=== PATIENT | male | born 1980 | race Caucasian/White ===

== ENCOUNTER 2020-10-04 15:11 | Outpatient (CLI) | payer BC ==
[2020-10-04 15:53] VITALS: BP 138/88
--- NOTE | 2020-10-04 15:53 | SLEEP CARE CONSULTATION ---
Information from patient questionnaire entered by Jj Lowe. I have reviewed and concur with the information entered by Jj Lowe. This document represents the service I personally performed and the decisions made by me, Nidia Hein ARNP. History of Present Illness Service Date and Time: 10/04/2020 1511 Reason for Visit: New patient Chief Complaint: reports: Unrefreshed sleep, Snoring, Excessive daytime sleepiness, Observed pauses in breathing, Frequent awakenings at night. denies: Insomnia, Fatigue Date of Onset: 8 years Usual bedtime: 11:30 PM Time it takes to fall asleep: 2 min Snores at night: Yes Observed to quit breathing while asleep: Yes Sleeps alone due to snoring: Yes Number of times waking at night: 3 Reasons for waking at night: reports: Snoring, Pain (in back). denies: Choking, Gasping for air Toss, Turn, or Twitch while sleeping: Yes Recalls having dreams: No Usually gets out of bed at: between 6 AM and 7 AM Feels refreshed in the morning: No Morning headache: No (none since getting mouth guard from dentist, possible bruxism) Sleepy or fatigued during the day: Yes Ever fallen asleep while driving: No Takes day naps: Yes (3 x a week for about 10 minutes to 30 minutes) Dreams during day naps: No Prior sleep studies: No Additional HPI information: I had the pleasure of seeing CEE CARRASCO today regarding the possibility of him having a sleep disorder. His current complaints are snoring, observed pauses in breathing and waking up at night. His states he snores and times when he has "held his breath" while sleeping. His snoring is so bad that his and he cannot sleep in same bed. His mother snores but has never been evaluated for sleep apnea. - Parasomnia Symptoms Ever been unable to move upon waking from sleep: No Walks in sleep: No Talks in sleep: No Ever acted out dreams in sleep: No Ever felt weak in the knees when startled or emotional: No Bothered by creepy, crawly, restless sensations in legs: No Problems with memory or concentration: Yes (more short term memory) Subjective Initial [place] Sleepiness Scale score: 11 (in 2019) Past Medical History Past Medical History: denies: Hypertension, Insulin resistance, Arrythmia, Anxiety, Impotence, Depression, Mood disorder, GERD Social History The patient's occupation is a [employer]. Patient is and lives in [place]. Have you smoked in the past 12 months: No Alcohol use: Yes Alcohol amount and frequency: one glass of wine twice a month Caffeine use: Yes Caffeine amount and frequency: 2 cans a day on average Family History Family history of sleep disordered breathing: Yes (Mother) Family Hx Sleep Apnea: Mother: Snoring Allergies and Home Medications Drug allergies reviewed: Yes (NKDA) Home medication list reviewed: Yes Allergy and home medication list: Advil, prn Review of Systems Weight gain over past 5 years: 30 Weight loss over past 5 years: 50 Cardiovascular: denies: high blood pressure, irregular heart rate or pulse Gastrointestinal: denies: heartburn Urinary: denies: impotence Neurological: denies: headaches Psychiatric: denies: anxiety, depression, mood disorder, claustrophobia Ear/Nose/Throat: reports: nose bleeds (random, here and there), wisdom teeth removed (still has 3, only one taken out). denies: nasal congestion, sinus problems, dry mouth/throat, injury to nose, tonsillectomy Musculoskeletal: reports: muscle pain or cramping Immunologic: denies: allergies to food or environment Physical Exam Blood Pressure: 138/88 Cuff size: long Heart Rate: 77 O2 Saturation: 98 Height: 6 ft 1.5 in Weight: 268 lb Body Mass Index: 34.9 BMI Classification: Obese Neck circumference: 18 (inches) Nostrils: patent to airflow Turbinates: normal Septum: midline Mouth and throat: narrow oropharynx Soft palate: normal Hard palate: normal Uvula: normal Uvula visualization: 50% Mallampati Class II Tongue: normal in size Tonsils: 1+ Chin and jaw: normal size and position Neck: normal w/o lymphadenopathy or thyromegaly Heart: regular rate and rhythm Lungs: clear bilaterally Impression and Plan 1. Suspected Obstructive Sleep Apnea-Hypopnea Syndrome, as suggested by a history of loud and irregular snoring, observed cessation of breath while asleep, frequent awakening during the night, unrefreshed sleep, cognitive impairment, and excessive daytime sleepiness. Narrow oropharynx and obesity are common predisposing factors for obstructive sleep apnea-hypopnea syndrome. I recommend proceeding to polysomnography to confirm the diagnosis and to assess severity. If the patient has significant sleep disordered breathing, a manual CPAP titration study will also be performed to find the optimal treatment pressure. I informed the patient of what the sleep studies involve and after some discussion, obtained agreement to proceed. The pathophysiology of obstructive sleep apnea-hypopnea syndrome was discussed with the patient and health risks of cardiovascular and cerebrovascular disease if not treated. [facility] brochure for obstructive sleep apnea-hypopnea syndrome given and reviewed. Risks of drowsy driving discussed in detail and patient advised to avoid long distance driving and to head well puller at the first sign of drowsiness. Patient agreed to plan. * Schedule polysomnography +- manual CPAP titration study. * Avoid long distance driving or driving when feeling sleepy. * Avoid alcohol, sedative and muscle relaxant around bedtime. * Attempt to lose weight. * Review instructions provided by trained office staff on how to prepare for the sleep study. * Return for follow-up after sleep study completed. Counseling Topics: Weight loss health impact Visit Type: In Office Time Spent with Patient (minutes): 30 Provider Statement: I spent 100% of the Face to Face Visit with the patient with greater than 50% spent counseling the patient and coordination of care.
== END 2020-10-04 15:12 | disposition home or self-care (01) ==
LOC: SC 15:11
PROVIDERS: ATTEND Nurse Practitioner Family
DX: G47.10 Hypersomnia, unspecified (principal); R41.89 Other symptoms and signs involving cognitive functions and awareness; G47.8 Other sleep disorders; R06.81 Apnea, not elsewhere classified; R06.83 Snoring; E66.9 Obesity, unspecified; Z68.34 Body mass index [BMI] 34.0-34.9, adult
CPT/HCPCS: 99212; 99213

== ENCOUNTER 2020-10-31 14:03 | Outpatient (CLI) | payer BC | END 2020-10-31 14:04 | disposition home or self-care (01) | LOC: SC 14:03 | PROVIDERS: ATTEND Nurse Practitioner Family | DX: G47.33 Obstructive sleep apnea (adult) (pediatric) (principal); R09.02 Hypoxemia; E66.3 Overweight; Z68.35 Body mass index [BMI] 35.0-35.9, adult | CPT/HCPCS: 95806 ==

== ENCOUNTER 2020-11-08 15:42 | Outpatient (CLI) | payer BC ==
--- NOTE | 2020-11-08 15:58 | SLEEP CARE CONSULTATION ---
Information from patient questionnaire entered by Jj Lowe. I have reviewed and concur with the information entered by Jj Lowe. This document represents the service I personally performed and the decisions made by , Nidia Hein ARNP. History of Present Illness Service Date and Time: 11/08/2020 1540 Accompanied by: Spouse Initial [place] Sleepiness Scale score: 11 (in 2020) Current [place] Sleepiness Scale score: 16 Additional HPI information: CEE CARRASCO returns via Telehealth visit with spouse for follow up and results of the recently performed home sleep study. I explained the pathophysiology behind obstructive sleep apnea. We then spent quite a bit of time discussing different treatment options. For mild obstructive sleep apnea, surgery and oral appliance are alternatives to nasal CPAP therapy but in moderate or severe cases, nasal CPAP is the most effective and reliable treatment. Because apnea is primarily in supine position, then positional management therapy could be effective. Methods discussed such as positioning with pillows, using a T-shirt with tennis balls in the back, and shown commercial products that have a pillow format on back to prevent supine sleep. I reviewed the impact of weight changes on sleep apnea and strongly recommended losing weight. After some discussion, the patient opted to go with the nasal CPAP therapy. Nasal autoCPAP set at 4-15 cmH20 will be ordered with rationale explained. A manual titration study will be ordered if unable to find optimal pressure with office adjustments. I explained how CPAP machine works and what to expect when using the machine. Using CPAP every night in order to get used to it was emphasized. Patient advised to put CPAP mask on before getting into bed so as not to fall asleep without CPAP. To assist acclimation to CPAP use, it could also be used for a short time during day while reading or watching TV. The patient was instructed to call the CPAP supplier to discuss any mechanical problem that may occur. If the mask given is uncomfortable or is difficult to keep on through the night even with adjustment, contact the CPAP supplier as many will replace with another mask style if notified before 30 days. If snoring or perceives is not getting enough air or too much air from the machine, notify this office. Patient was cautioned about risks of drowsy driving until sleepiness symptoms resolve. Sleep Study - Results Type of Sleep Study: Home sleep study Prior sleep studies: No Polysomnography/Home Sleep Study results: Physician Impression: The quality of the study is good. The length of the study is adequate (> 240 minutes). Please also see the tabulated and graphic data. 1. Obstructive Sleep Apnea-Hypopnea (ICD-10 G47.33), mild, with an AHI of 6.3/hr and davon SaO2 of 88%. During the study, the patient had 11 apneas (11 obstructive, 0 central, 0 mixed) and 26 hypopneas. The longest episode lasted 52.0 seconds. The respiratory events occurred almost exclusively during supine sleep (supine AHI was 47.9 and non-supine, 0.77). 2. Hypoxemia (ICD-10 R09.02), minimal, with the lowest oxygen saturation of 88 % and 0.2 minutes with SaO2 under 90%. Baseline oxygen saturation was normal (Average oxygen saturation was 95%). Allergies and Home Medications Home medication list reviewed: Yes (no changes) Review of Systems Review of systems same as previous: Yes (no changes) Physical Exam Vital signs obtained and entered by: Telehealth visit to reduce exposure during covid pandemic Height: 6 ft 1.5 in Impression and Plan 1. Obstructive Sleep Apnea-Hypopnea Syndrome, mild, with lowest oxygen saturation of 88%. Patient has severe SANCHO in the supine position. Obviously this is the cause of the patients symptoms of unrefreshed sleep, and excessive daytime sleepiness. Positive pressure therapy could benefit his overall health and reduce risks of cerebrovascular or cardiovascular adverse events. As mentioned above, the patient will be started on nasal autoCPAP therapy with pressure set at 4-15 cmH2O. A manual titration study will be completed if unable to find optimal treatment pressure with office adjustments. Compliance guidelines also reviewed. A copy of compliance guidelines will be given for reference at check out. Because the apnea is more severe supine, I instructed to avoid sleeping supine using pillow positioning until able to start CPAP use. * Nasal auto CPAP therapy, pressure at 4-15 cm H2O. * Attempt to lose weight. * Avoid alcohol consumption near bedtime. * Avoid supine sleep until using CPAP. * The patient is again cautioned about driving until sleepiness completely resolves. * Return one month after CPAP obtained. I will assess response to therapy and compliance at that time. Counseling Topics: Weight loss health impact Visit Type: Telehealth Video Video Type: VSee Patient Location: Home Location of Provider: Office Patient agrees and consents to this telehealth visit type: Yes Patient agrees to have their insurance billed: Yes Time Spent with Patient (minutes): 21 Provider Statement: I spent 100% of the Telehealth Video Call with the patient with greater than 50% spent counseling the patient and coordination of care.
== END 2020-11-08 15:43 | disposition home or self-care (01) ==
LOC: SC 15:42
PROVIDERS: ATTEND Nurse Practitioner Family
DX: G47.33 Obstructive sleep apnea (adult) (pediatric) (principal)

== ENCOUNTER 2021-01-10 15:12 | Outpatient (CLI) | payer BC ==
--- NOTE | 2021-01-10 15:44 | SLEEP CARE CONSULTATION ---
Information from patient questionnaire entered by Jj Lowe. I have reviewed and concur with the information entered by Jj Lowe. This document represents the service I personally performed and the decisions made by , Nidia Hein ARNP. History of Present Illness Service Date and Time: 01/10/2021 1512 Previous diagnosis: Mild, Obstructive Sleep Apnea-Hypopnea Syndrome AHI: 6.3 Reason for follow up: first compliance (11/30/20) Equipment type: CPAP Equipment obtained from: Other ([facility]; got initial supplies) Mask style: Nasal (under the nose) Backup mask available: No (will keep mask when replaced) Last cushion change: 1 month Prior sleep studies: No Year and Where: 2020 [facility] [place] Type of Sleep Study: Home sleep study HPI additional information: CEE CARRASCO was diagnosed to have mild, AHI 6.3, obstructive sleep apnea- hypopnea syndrome and returned today for CPAP therapy first compliance follow- up. CPAP Compliance Data - Data Reviewed with Patient Average duration of nightly device use: 6 h 14 min Compliance rate %: 100 Current pressure setting (cmH2O): 4-15 (median 7.3, avg 9.8, max 11.1) Average residual AHI: 0.8 Subjective Patient concerns: reports: dry mouth, nose, throat (dry mouth intermittently, 3 of 7 days). denies: aerophagia, mask discomfort, air blowing in eyes, mask leak noise, condensation in mask/hose, nasal congestion, epistaxis, other Observed to snore while using device: No Current pressure setting perceived as: comfortable On therapy, patient: reports: sleeping better, awakening more refreshed, being more awake and alert during the day, more rested overall. denies: drowsiness while driving Initial [place] Sleepiness Scale score: 11 (in 2020) Current [place] Sleepiness Scale score: 13 Allergies and Home Medications Home medication list reviewed: Yes (no changes) Review of Systems Review of systems same as previous: Yes (no changes) Physical Exam Heart Rate: 84 O2 Saturation: 98 Height: 6 ft 1.5 in Weight: 280 lb Body Mass Index: 36.4 BMI Classification: Obese Impression and Plan 1. Obstructive Sleep Apnea-Hypopnea Syndrome, mild, with excellent treatment compliance and excellent apnea control. On CPAP therapy, the patient has better sleep quality and is more rested overall. I will adjust pressure to reflect the pressure being used to 7-11 cmH2O. He has had some mouth dryness about 3 out of 7 days on average. He did increase his humidity but has noted a little bit of condensation in the tubing. Oral dryness can be reduced by adjusting humidity setting higher or heated hose lower or by adjusting both settings. He can incre ase the heated hose setting to reduce condensation. He voiced understanding. Patient's apnea severity and rationale for treatment to reduce apnea, improve sleep quality and reduce cardiovascular and cerebrovascular events was reviewed. * Change auto CPAP pressure to 7-11 cmH2O * Notify me if snoring with mask or feeling that the pressure is too much or too little * Attempt to lose weight * Call this office if any problems using CPAP * Return for follow up in 1-2 months, or sooner if concerns arise Counseling Topics: Weight loss health impact Visit Type: In Office Time Spent with Patient (minutes): 17 Provider Statement: I spent 100% of the Face to Face Visit with the patient with greater than 50% spent counseling the patient and coordination of care.
== END 2021-01-10 15:13 | disposition home or self-care (01) ==
LOC: SC 15:12
PROVIDERS: ATTEND Nurse Practitioner Family
DX: G47.33 Obstructive sleep apnea (adult) (pediatric) (principal); E66.9 Obesity, unspecified; Z68.36 Body mass index [BMI] 36.0-36.9, adult
CPT/HCPCS: 99212

== ENCOUNTER 2021-03-14 14:51 | Outpatient (CLI) | payer BC ==
--- NOTE | 2021-03-14 15:14 | SLEEP CARE CONSULTATION ---
Information from patient questionnaire entered by Radha Monet. I have reviewed and concur with the information entered by Radha Monet. This document represents the service I personally performed and the decisions made by me, Nidia Hein ARNP. History of Present Illness Service Date and Time: 03/14/2021 1451 Previous diagnosis: Mild, Obstructive Sleep Apnea-Hypopnea Syndrome AHI: 6.3 (in 2020) Reason for follow up: other (6 week with pressure change) Equipment type: CPAP Equipment obtained from: Other ([facility]; getting supplies as needed) Mask style: Nasal Backup mask available: Yes (old mask) Last cushion change: 1 week ago Prior sleep studies: Yes Year and Where: 2020 - [facility] Type of Sleep Study: Home sleep study HPI additional information: CEE CARRASCO was diagnosed to have mild, AHI 6.3, obstructive sleep apnea- hypopnea syndrome and returned today for CPAP therapy 6 week pressure change follow-up. CPAP Compliance Data - Data Reviewed with Patient Average duration of nightly device use: 6 hr 21 min Compliance rate %: 100 (42 days) Current pressure setting (cmH2O): 7-11 Humidity settin Average residual AHI: 0.7 Subjective Patient concerns: reports: dry mouth, nose, throat (dry mouth every once a while). denies: aerophagia, mask discomfort, air blowing in eyes, mask leak noise, condensation in mask/hose, nasal congestion, epistaxis Observed to snore while using device: No Current pressure setting perceived as: comfortable On therapy, patient: reports: sleeping better, awakening more refreshed, being more awake and alert during the day, more rested overall. denies: drowsiness while driving Initial [place] Sleepiness Scale score: 11 (in 2019) Current [place] Sleepiness Scale score: 7 Allergies and Home Medications Home medication list reviewed: Yes (no new meds) Review of Systems Review of systems same as previous: Yes (no changes; got Lars/Lars Covid vaccine in January) Physical Exam Heart Rate: 87 O2 Saturation: 98 Height: 6 ft 1.5 in Weight: 282 lb Body Mass Index: 36.7 BMI Classification: Obese Impression and Plan 1. Obstructive Sleep Apnea-Hypopnea Syndrome, mild, with excellent treatment compliance and excellent apnea control. On CPAP therapy, the patient has better sleep quality and is more rested overall. He states he get occasional dry mouth, he thinks this happens when his mouth comes open. I reviewed with him again about use of a chin strap if it becomes more regular or increasing his humidity setting. He voiced understanding. Patient's apnea severity and rationale for treatment to reduce apnea, improve sleep quality and reduce cardiovascular and cerebrovascular events was reviewed. * Continue auto CPAP pressure at 7-11 cmH2O * Notify me if snoring with mask or feeling that the pressure is too much or too little * Attempt to lose weight * Call this office if any problems using CPAP * Return for follow up in 3 months, or sooner if concerns arise Counseling Topics: Spare mask, Weight loss health impact Visit Type: In Office Time Spent with Patient (minutes): 15 Provider Statement: I spent 100% of the Face to Face Visit with the patient with greater than 50% spent counseling the patient and coordination of care.
== END 2021-03-14 14:52 | disposition home or self-care (01) ==
LOC: SC 14:51
PROVIDERS: ATTEND Nurse Practitioner Family
DX: G47.33 Obstructive sleep apnea (adult) (pediatric) (principal); E66.9 Obesity, unspecified; Z68.36 Body mass index [BMI] 36.0-36.9, adult
CPT/HCPCS: 99212

== ENCOUNTER 2021-06-13 14:54 | Outpatient (CLI) | payer BC ==
--- NOTE | 2021-06-13 15:09 | SLEEP CARE CONSULTATION ---
Information from patient questionnaire entered by Radha Monet. I have reviewed and concur with the information entered by Radha Monet. This document represents the service I personally performed and the decisions made by me, Nidia Hein ARNP. History of Present Illness Service Date and Time: 06/13/2021 1500 Previous diagnosis: Mild, Obstructive Sleep Apnea-Hypopnea Syndrome AHI: 6.3 (in 2020) Reason for follow up: three month Equipment type: CPAP Equipment obtained from: Other ([facility]; getting supplies as needed) Mask style: Nasal Backup mask available: Yes (old mask) Last cushion change: 2 days ago Prior sleep studies: Yes Year and Where: 2020 - [facility] Type of Sleep Study: Home sleep study HPI additional information: CEE CARRASCO was diagnosed to have mild, AHI 6.3, obstructive sleep apnea- hypopnea syndrome and returns via Telehealth visit today for CPAP therapy three month follow-up. CPAP Compliance Data - Data Reviewed with Patient Average duration of nightly device use: 6 hr 22 min Compliance rate %: 100 (90 days) Current pressure setting (cmH2O): 7-11 Humidity settin Average residual AHI: 0.6 Subjective Patient concerns: reports: dry mouth, nose, throat (sleeping with mouth open). denies: aerophagia, mask discomfort, air blowing in eyes, mask leak noise, condensation in mask/hose, nasal congestion, epistaxis, other Observed to snore while using device: No Current pressure setting perceived as: comfortable On therapy, patient: reports: sleeping better, awakening more refreshed, being more awake and alert during the day, more rested overall. denies: drowsiness while driving Initial [place] Sleepiness Scale score: 11 (in 2019) Current [place] Sleepiness Scale score: 7 Allergies and Home Medications Home medication list reviewed: Yes (no changes) Review of Systems Review of systems same as previous: Yes (no changes) Physical Exam Vital signs obtained and entered by: Telehealth visit to reduce exposure during Covid pandemic Height: 6 ft 1.5 in Impression and Plan 1. Obstructive Sleep Apnea-Hypopnea Syndrome, mild, with excellent treatment compliance and excellent apnea control. On CPAP therapy, the patient has better sleep quality and is more rested overall. He has been doing well but occasionally does get some dry mouth when his mouth comes open when he is sleeping. I discussed with him again about trying to use a chinstrap to keep his mouth closed and reduce oral dryness. He will try to use the chinstrap. Patient feels that he may try a full face mask if the chinstrap does not help. I encouraged him to do that if it does not improve over the next few months. He can change his mask when he is eligible to get more supplies. He voiced understanding and agreement with plan. Patient's apnea severity and rationale for treatment to reduce apnea, improve sleep quality and reduce cardiovascular and cerebrovascular events was reviewed. Patient was encouraged to lose weight for their overall health and to reduce apneas. * Continue autoCPAP pressure at 7-11 cmH2O * Try a chinstrap * Notify me if snoring with mask or feeling that the pressure is too much or too little * Attempt to lose weight * Call this office if any problems using CPAP * Return for follow up in 6 months, or sooner if concerns arise Counseling Topics: Spare mask, Weight loss health impact Visit Type: Telehealth Video Video Type: VSee Patient Location: Home Location of Provider: Office Patient agrees and consents to this telehealth visit type: Yes Patient agrees to have their insurance billed: Yes Time Spent with Patient (minutes): 16 Provider Statement: I spent 100% of the Telehealth Video Call with the patient with greater than 50% spent counseling the patient and coordination of care.
== END 2021-06-13 14:55 | disposition home or self-care (01) ==
LOC: SC 14:54
PROVIDERS: ATTEND Nurse Practitioner Family
DX: G47.33 Obstructive sleep apnea (adult) (pediatric) (principal)

== ENCOUNTER 2022-01-29 08:10 | Outpatient (CLI) | payer BC ==
--- NOTE | 2022-01-29 11:15 | XRAY Report ---
PROCEDURE: Knee 4 View BILAT INDICATIONS: BILAT KNEE PAIN TECHNIQUE: 4 views of the left and right knee(s) were acquired. COMPARISON: None. FINDINGS: Bones: No fractures or dislocations. Mild and symmetric medial compartment joint space loss bilatera lly. No significant spur formation. No suspicious bony lesions. Soft tissues: No joint effusion. No suspicious soft tissue calcifications. IMPRESSION: 1. 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 2. Otherwise normal bilateral knee joints. Reviewed by: Bonita Wright MD on 01/29/2022 11:13 AM PDT Approved by: Bonita Wright MD on 01/29/2022 11:13 AM PDT Station ID: [id number]
== END 2022-01-29 23:59 | disposition home or self-care (01) ==
LOC: DI.WOS 08:10
PROVIDERS: ATTEND Physician Assistant
DX: M17.0 Bilateral primary osteoarthritis of knee (principal)

== ENCOUNTER 2023-01-24 15:26 | Outpatient (CLI) | payer BC ==
--- NOTE | 2023-01-24 11:36 | SLEEP CARE CONSULTATION ---
Information from patient questionnaire entered by Romi Agustin. I have reviewed and concur with the information entered by Romi Agustin. This document represents the service I personally performed and the decisions made by me, Nidia Hein ARNP. History of Present Illness Service Date and Time: 01/24/2023 1140 Previous diagnosis: Mild, Obstructive Sleep Apnea-Hypopnea Syndrome AHI: 6.3 (in 2020) Reason for follow up: annual Equipment type: CPAP (ResMed Airsense 10, s/u 11/2020) Equipment obtained from: Other ([facility]; getting supplies as needed) Mask style: Nasal Backup mask available: Yes (old mask) Last cushion change: 2 days ago Prior sleep studies: Yes Year and Where: 2020 - [facility] Type of Sleep Study: Home sleep study HPI additional information: CEE CARRASCO was diagnosed to have mild, AHI 6.3, obstructive sleep apnea- hypopnea syndrome and returns via video telehealth visit today for CPAP therapy annual follow-up. Sleep Study - Results Type of Sleep Study: Home sleep study Prior sleep studies: Yes Year and Where: 2020 - [facility] CPAP Compliance Data - Data Reviewed with Patient Average duration of nightly device use: 6 HRS 19 MINS Compliance rate %: 98 (07/27/2022-01/22/23; 179/180 days used) Current pressure setting (cmH2O): 7-11 Average residual AHI: 0.5 Central apnea: 0.0 Obstructive apnea: 0.4 Average large leak: 0 Subjective Missed days of use due to: reports: other (no power) Patient concerns: reports: condensation in mask/hose (couple days but not consistent). denies: aerophagia, mask discomfort, air blowing in eyes, mask leak noise, nasal congestion, dry mouth, nose, throat, epistaxis Observed to snore while using device: No Current pressure setting perceived as: comfortable On therapy, patient: reports: sleeping better, awakening more refreshed, being more awake and alert during the day, more rested overall. denies: drowsiness while driving Initial [place] Sleepiness Scale score: 11 (in 2019) Current [place] Sleepiness Scale score: 4 (01/24/23) Allergies and Home Medications Known drug allergies: No Drug allergies reviewed: Yes Home medication list reviewed: Yes (no changes) Review of Systems Review of systems same as previous: Yes (no changes) Physical Exam Vital signs obtained and entered by: ROMI Rossi MA Height: 6 ft 1.5 in (PER PT) Weight: 260 lb (PER PT ) Body Mass Index: 33.8 BMI Classification: Obese Impression and Plan 1. Obstructive Sleep Apnea-Hypopnea Syndrome, mild, with good treatment compliance and good apnea control. On CPAP therapy, the patient has better sleep quality and is more rested overall. Patient has significant improvement of their sleep apnea and is satisfied with current CPAP therapy. Patient denies problems with oral dryness, nasal congestion, epistaxis, skin irritation or aerophagia. Patient's apnea severity and rationale for treatment to reduce apnea, improve sleep quality and reduce cardiovascular and cerebrovascular events was reviewed. 2. Obesity, unspecified. Currently patients BMI is 33.8. Obesity increases the risk of apnea, CPAP pressure requirements and overall health risks especially cardiovascular and diabetes. Thus patient is advised to lose weight. * Continue auto CPAP pressure at 7-11 cmH2O * Update supplies * Notify me if snoring with mask or feeling that the pressure is too much or too little * Attempt to lose weight * Call this office if any problems using CPAP * Return for follow up in 1 year, or sooner if concerns arise Counseling Topics: Spare mask, Weight loss health impact Visit Type: Telehealth Video Video Type: Doxbrigido Patient Location: on road Location of Provider: Office Patient agrees and consents to this telehealth visit type: Yes Patient agrees to have their insurance billed: Yes Time Spent with Patient (minutes): 12 Provider Statement: I spent 100% of the Telehealth Video Call with the patient with greater than 50% spent counseling the patient and coordination of care.
== END 2023-01-24 15:27 | disposition home or self-care (01) ==
LOC: SC 15:26
PROVIDERS: ATTEND Nurse Practitioner Family
DX: G47.33 Obstructive sleep apnea (adult) (pediatric) (principal); E66.9 Obesity, unspecified; Z68.33 Body mass index [BMI] 33.0-33.9, adult

== ENCOUNTER 2024-03-18 19:14 | Emergency (ER) | payer BC ==
[2024-03-18 19:21] VITALS: BP 142/90; O2SAT 100
[2024-03-18] MEDS: HYDROcod/ACETAM 5/325 MG TABLET PO STA (19:49)
--- NOTE | 2024-03-18 19:54 | XRAY Report ---
PROCEDURE: Ankle 3+V RT INDICATIONS: injury/posterior pain TECHNIQUE: 3 views of the ankle were acquired. COMPARISON: None. FINDINGS: Bones: No acute fractures or dislocations. Small retrocalcaneal spur. Mild degenerative changes of the dorsal right midfoot. Ankle mortise is normally aligned. No suspicious bony lesions. Soft tissues: No tibiotalar joint effusion. There is edema within Kager's fat pad without definite abnormal contour of the Achilles tendon shadow. IMPRESSION: No acute bony abnormality. Soft tissue edema within Kager's fat pad without definite abnormal contour of the Achilles tendon sha char. An Achilles tendon injury not included. Recommend clinical correlation. Reviewed by: Myke Muhammad MD on 03/18/2024 7:53 PM PDT Approved by: Myke Muhammad MD on 03/18/2024 7:53 PM PDT Station ID: [id number]
--- NOTE | 2024-03-18 20:16 | ED Physician Documentation ---
PD HPI LOWER EXT INJURY - Stated complaint Stated Complaint: RT FOOT INJ - Chief complaint Chief Complaint: Trauma Ext - History obtained from History obtained from: Patient - Additional information Additional information: Patient is a 43-year-old male presenting for evaluation of pain in the right ankle starting just prior to arrival. Patient states he was playing soccer with his son and it went to push off to run when he felt sudden pain in the Achilles region of the ankle. He denies prior injuries to this site. Does not take blood thinners. No head injury. Review of Systems Musculoskeletal: reports: Extremity pain PD PAST MEDICAL HISTORY - Past Medical History Past Medical History: No Cardiovascular: None Respiratory: None Neuro: None Endocrine/Autoimmune: None GI: None : None HEENT: None Psych: None Musculoskeletal: None Derm: None - Past Surgical History Past Surgical History: Yes - Present Medications Home Medications: Ambulatory Orders Medication Instructions Recorded Confirmed HYDROcod/ACETAM 5/325 [Lincoln 5/325] 1 tablet PO Q6H PRN #14 tablet 03/18/24 - Allergies Allergies/Adverse Reactions: Allergies Allergy/AdvReac Type Severity Reaction Status Date / Time Penicillins Allergy Unknown Verified 03/18/24 19:18 - Social History Does the pt smoke?: No Smoking Status: Never smoker Does the pt drink ETOH?: No Does the pt have substance abuse?: No - Immunizations Immunizations are current?: Yes - POLST Patient has POLST: No PD ED PE NORMAL - General General: Alert and oriented X 3, No acute distress, Well developed/nourished - HEENT HEENT: Atraumatic - Cardiac Cardiac: Strong equal pulses - Respiratory Respiratory: No respiratory distress - Derm Derm: Warm and dry - Extremities Extremities: Other (Loss of Achilles tendon definition distally; tenderness over Achilles; pain with dorsiflexionl unable to plantar flex) - Neuro Neuro: Alert and oriented X 3, No motor deficit, No sensory deficit, Normal speech Results - Vitals Vitals: Vital Signs - 24 hr 03/18/24 19:18 Temperature 36.7 C Heart Rate 100 Respiratory 18 Rate Blood Pressure 142/90 H O2 Saturation 100 Oxygen O2 Source Room air Procedures - Splint (location) - Minor R lower leg Splint applied by: Nurse Type of splint: Short leg, Posterior, Other (Orthoglass) Other: Patient tolerated well, No complications, Neurovascular intact, Crutches provided PD Medical Decision Making - ED course Complexity details: reviewed results, re-evaluated patient, d/w patient ED course: Patient with injuries to Achilles while playing soccer. Has a loss of tendon definition distally. Difficulty with plantarflexion. X-ray of the ankle was obtained which I reviewed I see no fracture or dislocation.Concern for Achilles tendon rupture. Discussed with on-call orthopedic surgeon, Dr. Miller. Will place into short leg posterior splint with plantarflexion, Crutches and that patient to have orthopedic follow-up. Patient was given Lincoln for pain control. I counseled on treatment plan as well as need for follow-up. Departure - Departure Disposition: Home, Self Care Clinical Impression: Injury of right Achilles tendon Condition: Stable Instructions: ED Tendon Rupture Achilles Follow-Up: Negro Miller MD [Provider Admit Priv/Credential] - Prescriptions: HYDROcod/ACETAM 5/325 [Lincoln 5/325] 1 tablet PO Q6H PRN #14 tablet PRN Reason: Pain Comments: Based on your exam I am concerned that you have an injury to your Achilles tendon. Your x-ray does not show a broken or out of place bone but there is an abnormality in the area of your Achilles tendon which could suggest a rupture. We have placed you into a splint today and have given you crutches. Please stay off of the right leg until you are seen for follow-up by her orthopedic surgeon. I have listed contact information for the local orthopedic doctor, Dr. Miller. I would recommend calling his office in the morning for close follow- up. I have also sent a prescription for pain medication to the [facility] pharmacy. I am prescribing a short course of narcotic pain medication for you. These are potentially dangerous and addictive medications that should be used carefully. These medications may constipate you. Take an sxjb-feb-ghatqik stool softener (docusate) twice daily with plenty of water while taking these medications. If you go 24 hours without a bowel movement, take [id number] miralax, per package instructions. Do not drink or drive while taking these medications. If you received narcotic or sedating medications while in the emergency department, do not drive for 24 hours. Store this medication in a safe, secure place and out of reach of children. It is a violation of federal law to give or sell this medication to another person or to use in a manner other than prescribed. The ED will not refill narcotic prescriptions, including prescriptions lost or stolen. To dispose of unwanted medications: 1. [facility] at [address] in [place] has a medication drop box. They accept prescription medications (in pill form) Saturday through Saturday 9:00 a.m. to 5:00 p.m. 2. The [facility] [employer] accepts prescription medications (in pill form only) for disposal year round. Call for more information. 3. Contact the [facility] for the next [employer] [employer] sponsored prescription drug collection event. , x7310, or [phone]; Note that many narcotic pain relievers also contain Tylenol/acetaminophen. Please ensure that your total dose of acetaminophen from all sources does not exceed 3 g (3000 mg) per day. Forms: PCP List, Activity restrictions Discharge Date/Time: 03/18/24 20:53
[2024-03-18] MEDS: HYDROcod/ACET 5/325 Prepack 4 PO STA (20:31)
== END 2024-03-18 20:53 | disposition home or self-care (01) ==
LOC: ED 19:14
DX: S86.001A Unspecified injury of right Achilles tendon, initial encounter (principal); X50.9XXA Other and unspecified overexertion or strenuous movements or postures, initial encounter; Y93.66 Activity, soccer
CPT/HCPCS: 29515; 73610; 99283; 99284; A9270

== ENCOUNTER 2024-04-07 15:36 | Outpatient (CLI) | payer BC ==
--- NOTE | 2024-04-07 16:13 | SLEEP CARE CONSULTATION ---
Information from patient questionnaire entered by Romi Agustin. I have reviewed and concur with the information entered by Romi Agustin. This document represents the service I personally performed and the decisions made by me, Nidia Hein ARNP. History of Present Illness Service Date and Time: 04/07/2024 1536 Previous diagnosis: Mild, Obstructive Sleep Apnea-Hypopnea Syndrome AHI: 6.3 (in 2020) Reason for follow up: annual (LAST SEEN 01/2023) Equipment type: CPAP (ResMed Airsense 10, s/u 11/2020) Equipment obtained from: Other ([facility]; getting supplies as needed) Mask style: Nasal Backup mask available: Yes Last cushion change: 3 weeks Prior sleep studies: Yes Year and Where: 2020 - [facility] Type of Sleep Study: Home sleep study HPI additional information: CEE CARRASCO was diagnosed to have mild, AHI 6.3, obstructive sleep apnea- hypopnea syndrome and returns via video appointment today for CPAP therapy annual follow-up. Sleep Study - Results Type of Sleep Study: Home sleep study Prior sleep studies: Yes Year and Where: 2020 - [facility] CPAP Compliance Data - Data Reviewed with Patient Average duration of nightly device use: 6 HRS 21 MINS Compliance rate %: 98 (04/03/23-04/01/24; 365/365 days used) Current pressure setting (cmH2O): 7-11 Average residual AHI: 0.6 Central apnea: 0 Obstructive apnea: 0.5 Hypopnea: 0.1 Average large leak: 0 L/min Subjective Patient concerns: reports: condensation in mask/hose (little bit in last few weeks with room change). denies: aerophagia, mask discomfort, air blowing in eyes, mask leak noise, nasal congestion, dry mouth, nose, throat, epistaxis Observed to snore while using device: No Current pressure setting perceived as: comfortable On therapy, patient: reports: sleeping better, awakening more refreshed, being more awake and alert during the day, more rested overall. denies: drowsiness while driving Initial [place] Sleepiness Scale score: 11 (in 2019) Current [place] Sleepiness Scale score: 5 Allergies and Home Medications Known drug allergies: Yes (as listed) Drug allergies reviewed: Yes Home medication list reviewed: Yes (no changes) Allergy and home medication list: Allergies Penicillins Allergy (Verified 04/02/24 09:52) Unknown Review of Systems Review of systems same as previous: No (ruptured Achilles) Physical Exam Vital signs obtained and entered by: NIDIA MCGEE Height: 6 ft 1.5 in (PER PT) Weight: 275 lb (per pt) Body Mass Index: 35.8 BMI Classification: Obese Impression and Plan 1. Obstructive Sleep Apnea-Hypopnea Syndrome, mild, with good treatment compliance and good apnea control. On CPAP therapy, the patient has better sleep quality and is more rested overall. Patient has significant improvement of their sleep apnea and is satisfied with current CPAP therapy. Patient denies problems with oral dryness, nasal congestion, epistaxis, skin irritation or aerophagia. He has got a little bit of condensation in his tubing since he has had to sleep at in the living room due to his Achilles tendon rupture for last 3 weeks. He says the machine has been closer to a window and it is cooler than his bedroom where he is sleeping and that is probably the cause of the condensation. I encouraged him to cover the tube to insulated it and this will help reduce the condensation. He voiced understanding. Patient's apnea severity and rationale for treatment to reduce apnea, improve sleep quality and reduce cardiovascular and cerebrovascular events was reviewed. 2. Obesity, unspecified. Currently patients BMI is 35.8. Obesity increases the risk of apnea, CPAP pressure requirements and overall health risks especially cardiovascular and diabetes. Thus patient is advised to lose weight. Continue auto CPAP pressure at 7-11 cmH2O Update supply prescription Notify me if snoring with mask or feeling that the pressure is too much or too little Attempt to lose weight Call this office if any problems using CPAP Return for follow up in 12 months, or sooner if concerns arise Counseling Topics: Spare mask, Weight loss health impact Prescriptions: Device supplies Follow up with Sleep Care in: 1 year Visit Type: Telehealth Video Video Type: Doximity Patient Location: Home Location of Provider: Office Patient agrees and consents to this telehealth visit type: Yes Patient agrees to have their insurance billed: Yes Time Spent with Patient (minutes): 14 Provider Statement: I spent 100% of the Telehealth Video Call with the patient with greater than 50% spent counseling the patient and coordination of care.
== END 2024-04-07 15:37 | disposition home or self-care (01) ==
LOC: SC 15:36
PROVIDERS: ATTEND Nurse Practitioner Family
DX: G47.33 Obstructive sleep apnea (adult) (pediatric) (principal); E66.9 Obesity, unspecified; Z68.35 Body mass index [BMI] 35.0-35.9, adult